=== PATIENT | female | born 1980 | race Caucasian/White ===

== ENCOUNTER 2017-02-03 09:52 | Outpatient (RCR) | payer BC | END 2017-03-23 10:39 | disposition home or self-care (01) | LOC: PT 09:52 | DX: S80.12XD Contusion of left lower leg, subsequent encounter (principal); V00.321D Fall from snow-skis, subsequent encounter ==

== ENCOUNTER → 2017-09-15 | Outpatient (CLI) | payer BC | LOC: RAD 09:57 | DX: E07.9 Disorder of thyroid, unspecified (principal) ==

== ENCOUNTER 2017-12-08 09:00 | Outpatient (RCR) | payer BC | END 2017-12-08 09:30 | disposition home or self-care (01) | LOC: PT 09:00 | DX: M77.11 Lateral epicondylitis, right elbow (principal) ==